=== PATIENT | male | born 1950 | race Asian ===

== ENCOUNTER 2023-11-16 08:26 | Day surgery (SDC) | payer OTHER ==
[2023-11-16 08:42] VITALS: BMI 27.9
[2023-11-16 08:47] VITALS: BP 140/71; PULSE 74; RESP 18; TEMP 97.6
== END 2023-11-16 09:00 | disposition home or self-care (01) ==
LOC: FASU-ENDO 08:26
PROVIDERS: ATTEND Internal Medicine Gastroenterology
PROC: 0DJ08ZZ Inspection of Upper Intestinal Tract, Via Natural or Artificial Opening Endoscopic (ICD-10-PCS; principal; 2023-11-16)
DX: Z53.8 Procedure and treatment not carried out for other reasons (principal); K21.9 Gastro-esophageal reflux disease without esophagitis
CPT/HCPCS: 82962